=== PATIENT | female | born 1960 | race Caucasian/White ===

== ENCOUNTER 2017-01-15 11:11 | Emergency (ER) | payer SELFPAY ==
[2017-01-15] MEDS ORDERED: Nitroglycerin 0.4 MG TAB (25 Tab Bottle) ONE (11:45)
[2017-01-15 12:06] LABS: ALT (SGPT) 27 U/L (0-55); AST (SGOT) 27 U/L (5-34); Albumin 4.1 g/dL (3.5-5.0); Alkaline Phosphatase 63 U/L (40-150); Anion Gap 12 mmol/L (10-20); BUN (Urea Nitrogen) 12 mg/dL (9.8-20.1); Bilirubin, Total 0.3 mg/dL (0.2-1.2); CK (CPK) 110 U/L (29-168); Calc. Creatinine Clearance 0 mL/min (70-130); Calcium 9.4 mg/dL (7.8-10.44); Carbon Dioxide 29 mmol/L (22-29); Chloride 102 mmol/L (98-107); Estimated GFR-MDRD 87; Globulin 3.1 g/dL (2.4-3.5); Glucose 94 mg/dL (70-105); Potassium 3.8 mmol/L (3.5-5.1); Protein, Total 7.2 g/dL (6.0-8.3); Sodium 139 mmol/L (136-145)
[2017-01-15 12:09] LABS: CKMB 3.3 ng/mL (0-6.6); Troponin I 0.013 ng/mL (< 0.028)
[2017-01-15 12:15] LABS: Hemoglobin 14.5 g/dL (12.0-16.0); Mean Corpuscular HGB CONC 33.3 g/dL (32.0-36.0); Mean Corpuscular Hemoglobin 31.4 pg (27.0-31.0); Mean Corpuscular Volume 94.3 fl (81.0-99.0); Mean Platelet Volume 8.6 fL (7.4-10.4); Platelet Count 244 thou/uL (130-400); RBC Distribution Width 12.3 % (11.5-14.5); Red Blood Cell (RBC) Count 4.62 mill/uL (4.20-5.40); White Blood Cell (WBC) Count 8.8 thou/uL (4.8-10.8)
[2017-01-15 12:17] LABS: PTT 27.6 SEC (22.9-36.1)
[2017-01-15 12:18] LABS: D-Dimer Test 0.32 *mcg/mL (0.27-0.43); INR-International Normal Ratio 0.9; Prothrombin Time 12.3 SEC (12.0-14.7)
[2017-01-15 12:20] LABS: Bilirubin Negative (Negative); Blood, Urine Negative (Negative); Clarity Clear (Clear); Glucose, Urine (Dipstick) Negative (Negative); Leukocyte Negative (Negative); Nitrite Negative (Negative); Protein, Urine (Dipstick) Negative (Neg-Trace); Urobilinogen 0.2 mg/dL (0.2-1.0); pH, Urine 7.5 (5.0-9.0)
[2017-01-15 12:49] LABS: Amphetamine Not Detected (NotDetected); Barbiturates Screen Not Detected (NotDetected); Benzodiazepine Screen Not Detected (NotDetected); Cocaine Metabolite Screen Not Detected (NotDetected); Medtox Control Line Valid? VALID (VALID); Methadone Not Detected (NotDetected); Methamphetamine Not Detected (NotDetected); Opiate Screen Not Detected (NotDetected); Oxycodone Screen Not Detected (NotDetected); Phencyclidine (PCP) Not Detected (NotDetected); THC/Cannabinoid Screen Not Detected (NotDetected); Tricyclic Screen Not Detected (NotDetected)
[2017-01-15 12:54] LABS: #Basophils 0.2 thou/uL (0.0-0.2); #Eosinphils 0.3 thou/uL (0.0-0.7); #Lymphocytes 2.1 thou/uL (1.20-3.40); #Monocytes 0.9 thou/uL (0.11-0.59); #Neutrophils 5.3 thou/uL (1.40-6.50); %Eosinophils 3.8 % (0.0-10.0); %Monocytes 10.2 % (0.0-10.0); %Neutrophils 60.1 % (42.0-75.0); PLT Morphology Comment Appears Adequate; RBC Morphology Normal
--- NOTE | 2017-01-15 13:43 | RAD ---
RADIOGRAPH CHEST 1 VIEW: Date: 01/15/17 Time: 1133 hours HISTORY: 56-year-old female with acute cough. COMPARISON: None available. FINDINGS: Cardiac size at upper limits of normal. Hyperinflation suggestive of at least mild COPD. Mild blunti ng of the lateral costophrenic angles bilaterally could represent small pleural effusions or pleural thickening. Ectasia and tortuosity of thoracic aorta. No consolidation. An approximately 1.5 cm ill -defined density in the right mid-lower lung zone could represent calcification of right fourth cost ochondral junction, or could represent a pulmonary nodule. No pneumothorax or pulmonary edema. IMPRESSION: 1. No evidence of pneumonia. 2. Emphysema. 3. Small bilateral pleural effusions versus pleural thickening. 4. Nodular density on the right may or may not be an actual pulmonary nodule. Recommend further juan jose luation with bilateral shallow (less than 5 degree) oblique views. JOSIANE [] POS: [facility]
[2017-01-15] MEDS ORDERED: Lorazepam 0.5 MG TAB ONE (14:09)
[2017-01-15] MEDS ORDERED: Acetaminophen 325 MG TAB ONE (14:16)
[2017-01-15 14:30] LABS: Troponin I 0.018 ng/mL (< 0.028)
[2017-01-15] MEDS ORDERED: HYDROcodone/Acetaminophen 5/325 mg Tablet ONE (14:56)
== END 2017-01-15 15:05 | disposition home or self-care (01) ==
LOC: BURERS 11:11
DX: J44.1 Chronic obstructive pulmonary disease with (acute) exacerbation (principal); I10 Essential (primary) hypertension
CPT/HCPCS: 36416; 71010; 80053; 80306; 81003; 82550; 82553; 83880; 84484; 85025; 85379; 85610; 85730; 93005; 94760; 36415-59